=== PATIENT | male | born 1975 | race Caucasian/White ===

== ENCOUNTER 2021-04-11 07:35 | Emergency (ER) | payer MEDICAID ==
[~2021-04-11] VITALS: Ht 162.6 cm; Wt 68.0 kg
[2021-04-11 07:35] VITALS: BP_SYST 117
[2021-04-11 08:22] VITALS: BP_SYST 117
== END 2021-04-11 08:25 ==
LOC: SED 07:35
DX: M65.28 Calcific tendinitis, other site (principal)
CPT/HCPCS: 99283

== ENCOUNTER 2021-05-14 12:17 | Emergency (ER) | payer MEDICAID ==
[~2021-05-14] VITALS: Ht 160 cm; Wt 65.8 kg
[2021-05-14 12:25] VITALS: BP_SYST 142
[2021-05-14] MEDS ORDERED: IBUP-1969 PO (12:38)
[2021-05-14 12:55] VITALS: BP_SYST 142
== END 2021-05-14 12:59 ==
LOC: SED 12:17
DX: L98.499 Non-pressure chronic ulcer of skin of other sites with unspecified severity (principal); L08.9 Local infection of the skin and subcutaneous tissue, unspecified
CPT/HCPCS: 99283

== ENCOUNTER 2021-06-27 16:52 | Emergency (ER) | payer MEDICAID ==
[~2021-06-27] VITALS: Ht 162.6 cm; Wt 77.1 kg
[~2021-06-27 16:52] MED LIST: IBUP-1969 PO
--- NOTE | 2021-06-27 16:55 | NUR ---
Patient to ambulance Chair 1 for evaluation. Side rails up.
[2021-06-27 16:56] VITALS: BP_SYST 114
--- NOTE | 2021-06-27 17:00 | NUR ---
ER at bedside examining patient.
--- NOTE | 2021-06-27 18:40 | NUR ---
Returned from radiology, back to [facility].
[2021-06-27 20:20] VITALS: BP_SYST 114
--- NOTE | 2021-06-27 20:20 | NUR ---
Patient given written and verbal discharge instructions and verbalizes understanding. Dr. Juan Luis JETER MD discussed with patient the results and treatment provided. Patient in stable condition. ID arm band removed. Patient educated on pain management and to follow up with PMD. Pain Scale 0/10. Opportunity for questions provided and answered.
== END 2021-06-27 20:20 ==
LOC: SED 16:52
DX: S93.114A Dislocation of interphalangeal joint of right lesser toe(s), initial encounter (principal); Z79.899 Other long term (current) drug therapy; X58.XXXA Exposure to other specified factors, initial encounter; Y93.89 Activity, other specified; Y92.89 Other specified places as the place of occurrence of the external cause; Y99.8 Other external cause status
CPT/HCPCS: 99284

== ENCOUNTER 2023-03-10 02:10 | Emergency (ER) | payer MEDICAID ==
[~2023-03-10] VITALS: Ht 162.6 cm; Wt 65.8 kg
[2023-03-10 02:10] VITALS: BP_SYST 140
--- NOTE | 2023-03-10 02:20 | NUR ---
PT PLACED IN HALLWAY ONE, VSS, NAD, EVEN UNLABORED RR. HAT CUTTER BY PT, PT MEDCLEARANCE FOR BOOKING.
--- NOTE | 2023-03-10 02:21 | NUR ---
ER at bedside examining patient.
--- NOTE | 2023-03-10 02:21 | NUR ---
PT BROUGHT IN BY VEGETABLE LOADER FOR MEDICAL CLEARANCE, PT HAS CALLOUSES AND BLISTERS WITH NO SHOES ON. REDNESS IS APPARENT. PT VSS, NAD, EVEN UNLABORED RR. CONNECTED TO VS MONITOR. SAFETY PERCAUTIONS IN PLACE.
--- NOTE | 2023-03-10 02:33 | NUR ---
PT LEFT IN OFFICER CUSTODY, Patient given written and verbal discharge instructions and verbalizes understanding. ER MD discussed with patient the results and treatment provided. Patient in stable condition. ID arm band removed. Opportunity for questions provided and answered. Medication side effect fact sheet provided.
== END 2023-03-10 02:33 | disposition home or self-care (01) ==
LOC: SED 02:10
DX: M79.671 Pain in right foot (principal); M79.672 Pain in left foot; F17.210 Nicotine dependence, cigarettes, uncomplicated; Z79.899 Other long term (current) drug therapy
CPT/HCPCS: 99283